=== PATIENT | female | born 1975 | race Caucasian/White ===

== ENCOUNTER 2021-08-12 20:44 | Emergency (ER) | payer OTHER ==
[~2021-08-12] VITALS: Ht 152.4 cm; Wt 101.4 kg
[2021-08-12 20:51] VITALS: BP 160/87
[2021-08-12] MEDS ORDERED: IBUPROFEN 600 MG TABLET PO ONE (21:00)
[2021-08-12] MEDS ORDERED: ACETAMINOPHEN 500 MG TABLET PO ONE (21:00)
== END 2021-08-12 21:47 | disposition home or self-care (01) ==
LOC: EMS 20:49
DX: S39.012A Strain of muscle, fascia and tendon of lower back, initial encounter (principal); M54.2 Cervicalgia; R51.9 Headache, unspecified; F32.9 Major depressive disorder, single episode, unspecified; I10 Essential (primary) hypertension; V49.9XXA Car occupant (driver) (passenger) injured in unspecified traffic accident, initial encounter; Y93.89 Activity, other specified; Y92.89 Other specified places as the place of occurrence of the external cause; Y99.8 Other external cause status
CPT/HCPCS: 72100; 99283